=== PATIENT | male | born 1990 | race Caucasian/White ===

== ENCOUNTER 2018-10-03 21:01 | Emergency (ER) | payer OTHER ==
[~2018-10-03] VITALS: Ht 182.9 cm; Wt 104.3 kg
[2018-10-03 21:10] VITALS: BP 139/78
[2018-10-03] MEDS ORDERED: CIPROFLOXIN HC2.5 M1 OTIC (21:35)
[2018-10-03] MEDS ORDERED: KEFLEX500 M1 PO (21:35)
[2018-10-03] MEDS ORDERED: ACETAMINOPHEN-1 EAC1 PO (21:35)
== END 2018-10-03 21:50 | disposition home or self-care (01) ==
LOC: M.ERS 21:01
DX: H66.93 Otitis media, unspecified, bilateral (principal); H60.93 Unspecified otitis externa, bilateral; F17.210 Nicotine dependence, cigarettes, uncomplicated